=== PATIENT | female | born 1980 | race Caucasian/White ===

== ENCOUNTER 2020-02-06 15:47 | Emergency (ER) | payer MEDICAID, SELFPAY ==
[2020-02-06] VITALS (7 sets, daily range): BP systolic 124–142; BP diastolic 80–92; PULSE 81–88; RESP 16; TEMP 37–37.3; O2SAT 96–100
--- NOTE | 2020-02-06 16:00 | DI.CT_ITS ---
EXAM: CT HEAD CERVICAL SPINE WO CLINICAL HISTORY: Skiing, fell, head injury, cracked helmet, LOC. TECHNIQUE: Imaging Protocol: Axial computed tomography images with coronal and sagittal reformatted images were created and reviewed COMPARISON: No exams were available for comparison FINDINGS: CT head: Ventricles and Extra axial spaces: Normal in size and morphology for the patient's age. Hemorrhage: None. Cerebral parenchyma: Normal. Midline shift: None. Brainstem/Cerebellum: Normal. Calvarium: Normal. Visualized Paranasal sinuses/Mastoids: Clear. CT cervical spine: The odontoid is intact. The lateral masses are well aligned. There is no acute fracture or subluxat ion. Mild degenerative changes are seen in the cervical spine. The prevertebral soft tissues are un remarkable. IMPRESSION: 1. No acute intracranial process. 2. No acute fracture or subluxation in the cervical spine. RADIATION DOSE DELIVERED: DATA REPOSITORY: All CT scans at this facility are submitted to the National Radiology Data Registry (NRDR) Dose Index Registry (DIR) with the [employer] (ACR). RADIATION OPTIMIZATION: All CT scans at this facility use at least one of these dose optimization te chniques: automated exposure control; mA and/or kV adjustment per patient size (includes targeted exa ms where dose is matched to clinical indication); or iterative reconstruction.
[2020-02-06] MEDS: MORPHine 10 MG/ML VIAL 2 MG IVP (16:23)
[2020-02-06 16:58] LABS: Abs Immature Grans 0.01 k/cumm (0.0-0.09); Absolute Basophil Count 0.03 k/cumm (0.0-0.2); Absolute Eosinophil Count 0.03 k/cumm (0.0-0.7); Absolute Lymphocyte Count 2.32 k/cumm (1.2-3.4); Absolute Monocyte Count 0.38 k/cumm (0.11-0.7); Absolute Neutrophil Count 6.55 k/cumm (1.2-6.7); Basophils % 0.3; Eosinophils % 0.3; HCT 38.6 % (36.0-46.0); HGB 12.8 g/dL (12.0-15.5); Immature Grans % 0.1 %; Lymphocytes % 24.9; Mean Corp. HGB Concentration 33.2 g/dL (32.0-36.0); Mean Corpuscular Hemoglobin 31.6 pg (27.0-33.0); Mean Corpuscular Volume 95.3 fL (80-95); Mean Platelet Volume 10.7 fL (8.0-11.0); Monocytes % 4.1; Neutrophils % 70.3; Platelet Count 306 x1000/uL (130-400); RBC 4.05 m/cumm (4.00-5.20); RBC Distribution Width 11.9 % (11.7-14.6); White Blood Cell Count 9.32 k/cumm (4.4-10.8)
[2020-02-06 17:14] LABS: ALT 19 U/L (14-59); AST 27 U/L (15-37); Albumin 3.9 g/dL (3.4-5.0); Alkaline Phosphatase 48 U/L (46-116); Anion Gap 10.5 mmol/L (3-11); BUN 9 mg/dL (7-18); Bilirubin, Total 0.3 mg/dL (0.2-1.0); CO2 25.5 mmol/L (21.0-32.0); CREATININE 0.53 mg/dL (0.55-1.02); Calcium 8.6 mg/dL (8.5-10.1); Chloride 107 mmol/L (98-107); Glucose 89 mg/dL (74-106); Potassium 3.9 mmol/L (3.5-5.1); Sodium 143 mmol/L (136-145); Total Protein 7.3 g/dL (6.4-8.2)
[2020-02-06] MEDS: Ondansetron 4 MG/2 ML VIAL IVP (17:42)
--- NOTE | 2020-02-06 18:32 | DI.VRAD_ITS ---
PROCEDURE INFORMATION: Exam: CT Head Without Contrast Exam date and time: 02/06/2020 4:11 PM Age: 39 years old Clinical indication: Other: Skiing, fell, head injury, cracked helmet, loc TECHNIQUE: Imaging protocol: Computed tomography of the head without contrast. Radiation optimization: All CT scans at this facility use at least one of these dose optimization techniques: automated exposure control; mA and/or kV adjustment per patient size (includes targeted exams where dose is matched to clinical indication); or iterative reconstruction. COMPARISON: No relevant prior studies available. FINDINGS: No evidence of hemorrhage. No mass effect. No acute intracranial abnormality. No evidence of acute fracture. IMPRESSION: No evidence of acute intracranial process. PROCEDURE INFORMATION: Exam: CT Cervical Spine Without Contrast Exam date and time: 02/06/2020 4:11 PM Age: 39 years old Clinical indication: Other: Skiing, fell, head injury, cracked helmet, loc TECHNIQUE: Imaging protocol: Computed tomography images of the cervical spine without contrast. Radiation optimization: All CT scans at this facility use at least one of these dose optimization techniques: automated exposure control; mA and/or kV adjustment per patient size (includes targeted exams where dose is matched to clinical indication); or iterative reconstruction. COMPARISON: No relevant prior studies available. FINDINGS: Degenerative disc disease at C5-C6. Anatomic alignment. No acute fracture. Paraspinous soft tissues unremarkable. IMPRESSION: No evidence of acute bony abnormality. Dictated and Authenticated by: Ivan Estrada MD. Ordering:GIANNI Pérez MD
[2020-02-06] MEDS: Ketorolac 30 MG/ML VIAL IVP (18:45)
--- NOTE | 2020-02-06 19:25 | ED.GENADUL_ITS ---
Discharge Plan Disposition Patient Disposition: HOME Condition: Stable Discharge Details Chief Complaint: Trauma Clinical Impression: Closed head injury with concussion Primary Care Provider: Karin,Local ED Provider: Beto Knutson Home Meds and New Rx's Prescriptions: Continued PNV cmb#95-ferrous fumarate-FA [] 1 EACH tablet 1 ea PO RF: 0 fish,bora,flax oils-om3,6,9no1 [[place] 3-6-9 Complex] 400 MG capsule 400 mg PO DAILY MDD 400 mg Qty: 100 RF: 0 acetaminophen [Tylenol] 325 MG tablet 650 mg PO Q4H PRN PRNRF: 0 Discharge Instructions Instructions: Concussion (ED), Head Injury (ED) Additional Instructions: CT imaging and blood work do not reveal any emergent process. As we discussed [id number] Tylenol and/or Motrin as directed for discomfort. Gentle stretching as tolerated. Cool and/or warm compresses every 2 hours for 20 minutes. Please watch for new or worsening symptoms and return immediately to the ER. Otherwise I recommend contacting our neurology team for outpatient reevaluation, her name and number has been provided Referrals: Ellen Spangler MD [ [facility] STAFF PHYSICIAN] - Medical Decision Making 39-year-old female presented to the ER in a hard c-collar after striking a tree while skiing, falling backwards, sustaining a brief LOC and cracking her helmet. IV established, routine laboratory values obtained, will obtain a CT of the head without contrast to rule out intracranial process or skull fracture, will obtain CT C-spine given mechanism although she has no reproducible discomfort. Considering she has had injury substantial enough to crack her helmet and a positive LOC, this can be considered a distracting injury. There is no trauma elsewhere on her body, will hold off on any additional imaging at this time Patient given 2 mg IV morphine for her headache, no resolution of her symptoms Given additional 2 mg of IV morphine and now 4 mg of IV Zofran as she reports mild nausea Laboratory values are unremarkable. CT imaging of head and C-spine without traumatic etiology per radiology. C-collar removed and given 30 IV Toradol Patient remains neurologically intact under my care. She reports feeling improvement after the collar is removed and is now ambulatory throughout the ER without difficulty. We discussed in length given her injury, LOC, nausea, headache, likely has a concussion and will provide neurology referral. Patient will take [id number] Tylenol and/or Motrin for her discomfort. Patient and family have no additional questions or concerns and are comfortable with this plan. Imaging Data Radiologic Study: Imaging: CT Scan Radiologist's impression: CT of head and C-spine read by virtual radiology as no evidence of acute intracranial process, no evidence of acute bony abnormality of the C-spine. Lab Data Lab results reviewed: Yes I reviewed the patient's lab results. Lab results narrative: Laboratory Tests Range/Units 02/06/20 02/06/20 02/06/20 16:09 16:30 16:30 WBC (4.4-10.8) k/cumm 9.32 RBC (4.00-5.20) m/cumm 4.05 Hgb (12.0-15.5) g/dL 12.8 Hct (36.0-46.0) % 38.6 MCV (80-95) fL 95.3 H MCH (27.0-33.0) pg 31.6 MCHC (32.0-36.0) g/dL 33.2 RDW (11.7-14.6) % 11.9 Plt Count (130-400) x1000/uL 306 MPV (8.0-11.0) fL 10.7 Immature Gran % % 0.1 Neutrophils % 70.3 Lymphocytes % 24.9 Monocytes % 4.1 Eosinophils % 0.3 Basophils % 0.3 Absolute Neutrophils (1.2-6.7) k/cumm 6.55 Absolute Lymphocytes (1.2-3.4) k/cumm 2.32 Absolute Monocytes (0.11-0.7) k/cumm 0.38 Absolute Eosinophils (0.0-0.7) k/cumm 0.03 Absolute Basophils (0.0-0.2) k/cumm 0.03 Sodium (136-145) mmol/L 143 Potassium (3.5-5.1) mmol/L 3.9 Chloride (98-107) mmol/L 107 Carbon Dioxide (21.0-32.0) mmol/L 25.5 Anion Gap (3-11) mmol/L 10.5 BUN (7-18) mg/dL 9 Creatinine (0.55-1.02) mg/dL 0.53 L Estimated GFR/1.73 m2 (mL/min/1.73m2) >= 60.00 Glucose (74-106) mg/dL 89 Calcium (8.5-10.1) mg/dL 8.6 Magnesium Cancelled Total Bilirubin (0.2-1.0) mg/dL 0.3 AST (15-37) U/L 27 ALT (14-59) U/L 19 Alkaline Phosphatase (46-116) U/L 48 Troponin I Cancelled Total Protein (6.4-8.2) g/dL 7.3 Albumin (3.4-5.0) g/dL 3.9 Range/Units 02/06/20 19:09 WBC (4.4-10.8) k/cumm RBC (4.00-5.20) m/cumm Hgb (12.0-15.5) g/dL Hct (36.0-46.0) % MCV (80-95) fL MCH (27.0-33.0) pg MCHC (32.0-36.0) g/dL RDW (11.7-14.6) % Plt Count (130-400) x1000/uL MPV (8.0-11.0) fL Immature Gran % % Neutrophils % Lymphocytes % Monocytes % Eosinophils % Basophils % Absolute Neutrophils (1.2-6.7) k/cumm Absolute Lymphocytes (1.2-3.4) k/cumm Absolute Monocytes (0.11-0.7) k/cumm Absolute Eosinophils (0.0-0.7) k/cumm Absolute Basophils (0.0-0.2) k/cumm Sodium (136-145) mmol/L Potassium (3.5-5.1) mmol/L Chloride (98-107) mmol/L Carbon Dioxide (21.0-32.0) mmol/L Anion Gap (3-11) mmol/L BUN (7-18) mg/dL Creatinine (0.55-1.02) mg/dL Estimated GFR/1.73 m2 (mL/min/1.73m2) Glucose (74-106) mg/dL Calcium (8.5-10.1) mg/dL Magnesium Total Bilirubin (0.2-1.0) mg/dL AST (15-37) U/L ALT (14-59) U/L Alkaline Phosphatase (46-116) U/L Troponin I Cancelled Total Protein (6.4-8.2) g/dL Albumin (3.4-5.0) g/dL HPI General Date/Time Provider Initiated Documentation: 02/06/20 16:02 . Limitations to Documentation: no limitations . Information obtained by: patient and family . HPI Narrative: This is a 39-year-old female who reports [place] the [place], unknown exact speed, but reports that she was not going fast. She swerved to miss someone which caused her to ski into a tree, she did not sustain injury from striking the tree, but subsequently fell backwards striking her head, cracking her helmet. She reports a brief loss of consciousness, now a moderate to severe global headache, mild nausea. She denies visual changes, neck pain, c hest pain, abdominal pain, vomiting, numbness, tingling, weakness, incontinence.. Patient denies any significant past medical history. Related Data Home Medications Medication Instructions Recorded Confirmed PNV cmb#95-ferrous fumarate-FA 1 ea PO 04/16/17 [] fish,bora,flax oils-om3,6,9no1 400 mg PO DAILY #100 tab MDD 400 mg 10/16/17 [[place] 3-6-9 Complex] acetaminophen [Tylenol] 650 mg PO Q4H PRN PRN tab 11/02/17 Previous Rx's Medication Instructions Recorded fish,bora,flax oils-om3,6,9no1 400 mg PO DAILY #100 tab MDD 400 mg 10/16/17 [[place] 3-6-9 Complex] acetaminophen [Tylenol] 650 mg PO Q4H PRN PRN tab 11/02/17 Allergies Allergy/AdvReac Type Severity Reaction Status Date / Time amoxicillin Allergy Unknown Skin Rash Unverified 02/06/20 16:04 General Stated Complaint: Trauma ANDREW: 2 Review of Systems Constitutional Constitutional: Denies fatigue, Reports headache(s) and Denies weakness Eyes Eyes: Denies change in vision ENT Ears, Nose, Mouth, and Throat: Reports headache(s) Cardiovascular Cardiovascular: Denies chest pain and Denies dyspnea Respiratory Respiratory: Denies dyspnea Gastrointestinal Gastrointestinal: Denies abdominal pain, Reports nausea and Denies vomiting Musculoskeletal Musculoskeletal: Denies back pain, Denies numbness and Denies tingling Integumentary/Breasts Skin/Breast: Denies rash Neurologic Neurologic: Reports headache(s), Denies numbness, Denies tingling and Denies weakness Endocrine Endocrine: Denies fatigue PFSH Family History Mother Diabetes Heart disease Father Epilepsy Afib Sister Epilepsy Social History Smoking/Tobacco Use Status: Never Alcohol Intake: current Do you feel safe at home: Yes Exam Const General: cooperative, healthy appearing, comfortable and no acute distress Orientation: alert, awake and oriented x3 HENMT Head: normal to inspection, no palpable skull fracture, normocephalic and atraumatic Ears: external ears normal, TM's normal bilaterally and EAC's normal General nose exam: external nose normal Face and sinus: normal facial exam Mouth: oral mucosae normal and moist mucous membranes Throat: posterior oropharynx normal Eyes General: appearance normal, both eyes and all related structures Visual Naik: normal visual naik by confrontation Alignment and Position: alignment normal Periorbital: periorbital findings normal Eyelids: eyelids normal Conjunctivae: conjunctivae normal Sclera: sclerae normal Cornea: corneas normal Pupils: PERRL EOM: EOM intact bilaterally Direct ophthalmoscopy: normal light reflex Neck Neck: normal visual inspection, trachea midline, supple and other (The patient in hard collar C-spine precautions. Without tenderness or spasm) Chest Chest: normal inspection of the chest and normal palpation of entire chest wall Resp Effort & Inspection: normal respiratory effort and able to speak in complete sentences Auscultation: clear to auscultation bilaterally Cardio Rate: regular rate Rhythm: regular rhythm GI Inspection: normal to inspection Palpation: soft, not firm, no guarding, not rigid and nontender Auscultation: normal bowel sounds Back/Spine/Pelvis Back: no CVA tenderness and No back tenderness Cervical Spine: collar present and No cervical spinal tenderness Thoracic/Lumbar Spine: thoracic and lumbar spine normal to inspection and No paraspinal tenderness Pelvis: no pain with anterior-posterior compression Skin General skin exam: no rashes or lesions noted Neuro General: alert, awake, oriented x3, moves all extremities and no focal motor deficits Cranial Nerves: CN's II-XI intact bilaterally Cognition: normal cognition Speech: speech normal Motor: muscle tone normal throughout, strength 5/5 throughout and no pronator drift noted Sensory Exam: no sensory deficits noted Coordination: [id number] test normal Extrem General: normal to inspection, full ROM and normal capillary refill Psych Appearance: grossly normal Mental Status: mental status grossly normal Course Vital Signs Vital signs: Vital Signs Temperature 37.3 C 02/06/20 15:49 Pulse 88 02/06/20 15:49 Respiratory Rate 16 02/06/20 15:49 Blood Pressure 124/92 H 02/06/20 15:49 Pulse Oximetry 100 02/06/20 15:49 Temperature 37.0 C 02/06/20 18:57 Temperature Source Temporal Artery Scan 02/06/20 18:57 Pulse 81 02/06/20 17:31 Respiratory Rate 16 02/06/20 17:20 Respiratory Effort 02/06/20 15:58 Blood Pressure 142/81 H 02/06/20 17:31 Blood Pressure Mean 89 02/06/20 17:31 Blood Pressure Position Sitting 02/06/20 15:49 Pulse Oximetry 97 02/06/20 17:40 Oxygen Delivery Method Room Air 02/06/20 17:20 Oxygen Flow Rate 0 02/06/20 17:20 Pain Level 8 02/06/20 17:41 Comment 02/06/20 18:57 Lab/Test Results Lab/Test Results: Laboratory Tests Range/Units 02/06/20 02/06/20 02/06/20 16:09 16:30 16:30 WBC (4.4-10.8) k/cumm 9.32 RBC (4.00-5.20) m/cumm 4.05 Hgb (12.0-15.5) g/dL 12.8 Hct (36.0-46.0) % 38.6 MCV (80-95) fL 95.3 H MCH (27.0-33.0) pg 31.6 MCHC (32.0-36.0) g/dL 33.2 RDW (11.7-14.6) % 11.9 Plt Count (130-400) x1000/uL 306 MPV (8.0-11.0) fL 10.7 Immature Gran % % 0.1 Neutrophils % 70.3 Lymphocytes % 24.9 Monocytes % 4.1 Eosinophils % 0.3 Basophils % 0.3 Absolute Neutrophils (1.2-6.7) k/cumm 6.55 Absolute Lymphocytes (1.2-3.4) k/cumm 2.32 Absolute Monocytes (0.11-0.7) k/cumm 0.38 Absolute Eosinophils (0.0-0.7) k/cumm 0.03 Absolute Basophils (0.0-0.2) k/cumm 0.03 Sodium (136-145) mmol/L 143 Potassium (3.5-5.1) mmol/L 3.9 Chloride (98-107) mmol/L 107 Carbon Dioxide (21.0-32.0) mmol/L 25.5 Anion Gap (3-11) mmol/L 10.5 BUN (7-18) mg/dL 9 Creatinine (0.55-1.02) mg/dL 0.53 L Estimated GFR/1.73 m2 (mL/min/1.73m2) >= 60.00 Glucose (74-106) mg/dL 89 Calcium (8.5-10.1) mg/dL 8.6 Magnesium Cancelled Total Bilirubin (0.2-1.0) mg/dL 0.3 AST (15-37) U/L 27 ALT (14-59) U/L 19 Alkaline Phosphatase (46-116) U/L 48 Troponin I Cancelled Total Protein (6.4-8.2) g/dL 7.3 Albumin (3.4-5.0) g/dL 3.9 Range/Units 02/06/20 19:09 WBC (4.4-10.8) k/cumm RBC (4.00-5.20) m/cumm Hgb (12.0-15.5) g/dL Hct (36.0-46.0) % MCV (80-95) fL MCH (27.0-33.0) pg MCHC (32.0-36.0) g/dL RDW (11.7-14.6) % Plt Count (130-400) x1000/uL MPV (8.0-11.0) fL Immature Gran % % Neutrophils % Lymphocytes % Monocytes % Eosinophils % Basophils % Absolute Neutrophils (1.2-6.7) k/cumm Absolute Lymphocytes (1.2-3.4) k/cumm Absolute Monocytes (0.11-0.7) k/cumm Absolute Eosinophils (0.0-0.7) k/cumm Absolute Basophils (0.0-0.2) k/cumm Sodium (136-145) mmol/L Potassium (3.5-5.1) mmol/L Chloride (98-107) mmol/L Carbon Dioxide (21.0-32.0) mmol/L Anion Gap (3-11) mmol/L BUN (7-18) mg/dL Creatinine (0.55-1.02) mg/dL Estimated GFR/1.73 m2 (mL/min/1.73m2) Glucose (74-106) mg/dL Calcium (8.5-10.1) mg/dL Magnesium Total Bilirubin (0.2-1.0) mg/dL AST (15-37) U/L ALT (14-59) U/L Alkaline Phosphatase (46-116) U/L Troponin I Cancelled Total Protein (6.4-8.2) g/dL Albumin (3.4-5.0) g/dL POC- Test(urine) Negative
== END 2020-02-06 19:05 | disposition home or self-care (01) ==
PROVIDERS: Emergency Provider Physician Assistant
DX: S06.9X1A Unspecified intracranial injury with loss of consciousness of 30 minutes or less, initial encounter (principal); W22.09XA Striking against other stationary object, initial encounter; Y93.23 Activity, snow (alpine) (downhill) skiing, snowboarding, sledding, tobogganing and snow tubing
CPT/HCPCS: 80053; 81025; 96374; 96375; 96376; 99285; 70450; 72125; 83735; 84484; 85025; 99284; J1885; J2270; J2405

== ENCOUNTER 2021-03-06 02:39 | Outpatient (CLI) | payer MEDICAID, SELFPAY ==
[2021-03-07 18:32] LABS: COVID-19 RT-PCR UVMMC Result Negative (Negative)
== END 2021-03-06 02:40 | disposition home or self-care (01) ==
LOC: LBO 02:39
PROVIDERS: Visit Provider Pediatrics
DX: Z20.822 Contact with and (suspected) exposure to COVID-19 (principal)
CPT/HCPCS: U0003

== ENCOUNTER 2021-03-08 09:51 | Outpatient (CLI) | payer MEDICAID, SELFPAY ==
[2021-03-09 16:16] LABS: COVID-19 RT-PCR UVMMC Result Negative (Negative)
== END 2021-03-08 09:52 | disposition home or self-care (01) ==
PROVIDERS: Visit Provider Pediatrics
DX: Z20.822 Contact with and (suspected) exposure to COVID-19 (principal)
CPT/HCPCS: U0003

== ENCOUNTER 2021-08-16 12:14 | Outpatient (REF) | payer MEDICAID, SELFPAY ==
--- NOTE | 2021-08-16 10:15 | PAPFT_PTH ---
PATIENT: Mónica Falk LOC: [facility] U#:[id number] AGE/SX: 40/F ROOM: RE08/16/[address]: CAROLINE Barry : 1980 BED: DIS: 08/16/2021 SPEC #: [id number] RECD: 08/16/21 12:46 STATUS: ESTEFANI REQ #: [id number] [place]AS[place]: 08/16/21 10:[address]: Munira Gerardo DEPT: [facility] Cytology RECD BY: Krysta Mims ENTERED: 08/16/21 12:47 SP TYPE: PAPFT OT DR: Karin Local Tissues: 1 - CX/ENDOCX FOR PAP SMEARS Procedures: PAP THIN PREP/UVM Screening HPV DNA PROBE Comments: [id number]
== END 2021-08-16 12:15 | disposition home or self-care (01) ==
LOC: LBN 12:14
PROVIDERS: Referring Provider Nurse Practitioner Family; Visit Provider Nurse Practitioner Family
DX: Z12.4 Encounter for screening for malignant neoplasm of cervix (principal); Z11.51 Encounter for screening for human papillomavirus (HPV)
CPT/HCPCS: 88142; 87624

== ENCOUNTER 2021-09-10 00:39 | Outpatient (CLI) | payer MEDICAID, SELFPAY ==
--- NOTE | 2021-09-10 07:30 | DI.US_ITS ---
Exam(s) US PELVIS TRANSVAGINAL EXAM: US PELVIS TRANSVAGINAL CLINICAL HISTORY: heavy long periods,MENORRHAGIA,N92.0 TECHNIQUE: Ultrasound performed using standard protocol. COMPARISON: No exams were available for comparison FINDINGS: Pelvic ultrasound was performed transabdominally and transvaginally. Uterus measures 9.5 x 4.8 x 5.9 cm and is heterogeneous in appearance without focal intrauterine mass. Endometrial stripe is about 6 millimeters in thickness and appears homogeneous. Left ovary has an unremarkable follicular appearance and measures 26 x 10 x 30 millimeters. There is an apparent mass adjacent to and perhaps arising from the right ovary, right ovary per se me asures 36 x 17 x 29 millimeters and the exophytic mass measures 19 x 18 x 20 millimeters and contains vascular flow on Doppler evaluation, mass is mildly heterogeneous and predominantly isoechoic to the adjacent ovary. There is a small quantity of free fluid in the right adnexal region. Limited scanning of the kidneys is unremarkable. IMPRESSION: Right ovarian or paraovarian mass which has an indeterminate appearance and contains internal vascula rity. Possibility of neoplastic disease not excluded. Pelvic MRI may be considered for correlation. DATA REPOSITORY:
--- NOTE | 2021-09-10 12:55 | DI.MAMMO_ITS ---
Exam(s) MAMMO SCREENING EXAM: MAMMO SCREENING CLINICAL HISTORY: screening,Z12.39 TECHNIQUE: Mammograms were interpreted according to the usual protocol including computer analysis w [employer] CAD system, tomosynthesis and C-view imaging. COMPARISON: FINDINGS: The breasts are heterogeneously dense. No dominant mass or clumped microcalcification is identified in either breast. This examination is a baseline examination. IMPRESSION: No specific evidence of malignancy at this time. Routine screening examinations are suggested at yea rly intervals in this age group according to the ACR guidelines. BI-RADS Category 1 - Negative Breast Density - Category C - Heterogeneously dense
== END 2021-09-10 00:59 ==
PROVIDERS: Visit Provider Nurse Practitioner Family
DX: Z12.31 Encounter for screening mammogram for malignant neoplasm of breast (principal); N92.0 Excessive and frequent menstruation with regular cycle; R92.8 Other abnormal and inconclusive findings on diagnostic imaging of breast; R93.5 Abnormal findings on diagnostic imaging of other abdominal regions, including retroperitoneum
CPT/HCPCS: 77063; 77067; 76830; 76856

== ENCOUNTER 2021-10-30 01:43 | Outpatient (CLI) | payer MEDICAID, SELFPAY ==
--- NOTE | 2021-10-30 07:30 | DI.MRI_ITS ---
Exam(s) MR PELVIS WO/W EXAM: MR PELVIS WO/W CLINICAL HISTORY: MASS RT OVARY, N83.8,F/U ABNL US TECHNIQUE: Multiplanar multisequence MRI of Pelvis was performed. CONTRAST MATERIAL: IV Contrast: 14 mL of Dotarem contrast administered. COMPARISON: US US PELVIS TRANSVAGINAL from 09/10/2021 FINDINGS: Reproductive organs: The uterus appears grossly unremarkable. The left ovary is unremarkable. In th e right adnexa there 2 peripherally enhancing cysts adjacent cysts present. The larger measures 2.3 x 1.7 cm. The smaller measures 1.6 x 1.6 cm. These appear to be ovarian in origin. Inferior to the ovary, lies the solid lesion seen on ultrasound. It measures 1.8 x 1.8 cm. It shows hypointense si gnal on both T1 and T2 weighted images. It homogeneously enhances following contrast administration. It abuts the inferior aspect of the right ovary. It lies close to the right aspect of the uterus. Bowel: The visualized bowel is unremarkable. Urinary bladder: Unremarkable. Bones: Unremarkable. Pelvis: There is a small amount of free fluid in the pelvis. IMPRESSION: 1. 1.8 x 1.8 cm enhancing lesion in the right adnexa. It abuts both the uterus and right ovary. Dif ferential considerations include pedunculated fibroid, ovarian mass (both benign and malignant), or a denopathy among other etiologies. 2. Right ovarian cysts. DATA REPOSITORY:
[2021-10-30] MEDS: Normal Saline Flush 10 ML SYR IVP (09:40)
[2021-10-30] MEDS: Gadoterate meglumine 20 ML VIAL 14 ML IVP (09:41)
== END 2021-10-30 02:03 ==
PROVIDERS: Visit Provider Obstetrics & Gynecology Gynecology
DX: N83.8 Other noninflammatory disorders of ovary, fallopian tube and broad ligament (principal); R93.5 Abnormal findings on diagnostic imaging of other abdominal regions, including retroperitoneum
CPT/HCPCS: 72197

== ENCOUNTER 2021-11-12 04:03 | Outpatient (CLI) | payer MEDICAID, SELFPAY ==
[2021-11-12 10:50] LABS: HCT 37.9 % (36.0-46.0); HGB 12.3 g/dL (11.2-15.7); MCH 31.8 pg (27.0-33.0); MCHC 32.5 % (32.0-36.0); MCV 97.9 fL (80-95); MPV 10.1 fL (8.0-11.0); Platelet Count 291 10^3/uL (130-400); RBC 3.87 10^6/uL (3.93-5.22); RDW 11.7 % (11.7-14.6); RDW-SD 42.2 fL; WBC 6.89 10^3/uL (4.4-10.8)
[2021-11-12 12:11] LABS: Anion Gap 5.1 mmol/L (3-11); BUN 14 mg/dL (7-18); CO2 31.9 mmol/L (21.0-32.0); CREATININE 0.7 mg/dL (0.55-1.02); Chloride 103 mmol/L (98-107); Glucose 113 mg/dL (74-106); Sodium 140 mmol/L (136-145)
[2021-11-12 12:15] LABS: HCG Qual (Serum) Negative
[2021-11-12 16:05] LABS: Source Nasal/Nares
[2021-11-12 21:46] LABS: COVID-19 PCR Negative (Negative)
== END 2021-11-12 04:04 | disposition home or self-care (01) ==
LOC: LBO 04:03
PROVIDERS: Visit Provider Obstetrics & Gynecology Gynecology
DX: D25.9 Leiomyoma of uterus, unspecified (principal); Z30.2 Encounter for sterilization; Z20.822 Contact with and (suspected) exposure to COVID-19; Z01.818 Encounter for other preprocedural examination; Z01.812 Encounter for preprocedural laboratory examination
CPT/HCPCS: 36415; 80048; 85027; 87635; 84703

== ENCOUNTER 2021-11-14 10:02 | Day surgery (SDC) | payer MEDICAID, SELFPAY ==
[2021-11-14] VITALS (8 sets, daily range): BP systolic 95–122; BP diastolic 42–80; PULSE 53–77; RESP 14–19; TEMP 36.1–37.1; O2SAT 95–99; BMI 27.7
--- NOTE | 2021-11-14 10:37 | W.ANESPRE ---
General Info Date of Service Date Performed: 11/14/21 Height: 5 ft 3 in Weight: 70.987 kg Body Mass Index (BMI): 27.7 Surgical Procedure: Operation Date: 11/14/21 10:55 Proposed Procedures Side Surgeon p Salpingectomy Laparoscopic w/ right ovarian cystectomy Bilateral Marcy Howard MD Meds Allergies and Home Medications Allergies Allergy/AdvReac Type Severity Reaction Status Date / Time amoxicillin Allergy Unknown Skin Rash Verified 11/14/21 10:12 Home Medication Medication Instructions Recorded acetaminophen [Tylenol] 650 mg PO Q4H PRN PRN tab 11/02/17 Current Visit Medications: Current Medications Generic Name Dose Route Start Last Admin Trade Name Freq PRN Reason Stop Dose Admin Ringer's Solution 1,000 mls @ 125 mls/hr 11/14/21 06:00 IV 12/13/21 23:59 INFUSION PHANI IV Miscellaneous Supplies 1 each 11/14/21 06:00 Iv Access IV 12/13/21 23:59 DIRECTED PHANI Sodium Chloride 0 ml 11/14/21 06:00 Normal Saline Flush 10 Ml Syr IV 12/13/21 23:59 PRN PRN Sodium Chloride 0 ml 11/14/21 06:00 Normal Saline 10 Ml Vial IJ 12/13/21 23:59 DIRECTED PRN Sterile Water 0 ml 11/14/21 06:00 Water,Injection,Sterile 10 Ml Vial IJ 12/13/21 23:59 DIRECTED PRN PFSH Active Problems Active Problems: Problem Status Onset Code Preop examination Z01.818 Mass of right ovary N83.8 Request for sterilization Z30.2 Adjustment disorder with anxiety F43.22 Other specified counseling Z71.89 Medical History Medical History Post-concussion headache Medical History Comments:: HCG was negative Tobacco Smoking/Tobacco Use Status: Never Alcohol Alcohol Intake: current Alcohol intake frequency: a few times a week Alcohol type: beer and wine Substance Use Substance use: Occasionally Substance use type: marijuana Details: few times per week Vital Signs and Lab Results Vital Signs Most Recent Vital Signs in EMR: Most Recent Vital Signs Temp Pulse Resp BP Pulse Ox 37.1 C 77 16 122/80 99 11/14/21 10:05 11/14/21 10:05 11/14/21 10:05 11/14/21 10:05 11/14/21 10:05 Lab Results Blood Type / Crossmatch: No Data to Display Complete Blood Count: White Blood Count 6.89 10^3/uL (4.4-10.8) 11/12/21 10:46 11/12/21 Red Blood Count 3.87 10^6/uL (3.93-5.22) L 11/12/21 10:46 11/12/21 Hemoglobin 12.3 g/dL (11.2-15.7) 11/12/21 10:46 11/12/21 Hematocrit 37.9 % (36.0-46.0) 11/12/21 10:46 11/12/21 Platelet Count 291 10^3/uL (130-400) 11/12/21 10:46 11/12/21 Complete Metabolic Panel: Sodium Level 140 mmol/L (136-145) 11/12/21 10:46 11/12/21 Potassium Level 4.0 mmol/L (3.5-5.1) 11/12/21 10:46 11/12/21 Chloride Level 103 mmol/L (98-107) 11/12/21 10:46 11/12/21 Carbon Dioxide Level 31.9 mmol/L (21.0-32.0) 11/12/21 10:46 11/12/21 Blood Urea Nitrogen 14 mg/dL (7-18) 11/12/21 10:46 11/12/21 Creatinine 0.7 mg/dL (0.55-1.02) 11/12/21 10:46 11/12/21 Estimated GFR/1.73 m2 >= 60.00 (mL/min/1.73m2) 11/12/21 10:46 11/12/21 Calcium Level 9.0 mg/dL (8.5-10.1) 11/12/21 10:46 11/12/21 Glucose Level 113 mg/dL (74-106) H 11/12/21 10:46 11/12/21 Liver Function Panel: No Data to Display Coagulation Panel: No Data to Display Cardiac Panel: No Data to Display Arterial Blood Gas: No Data to Display Venous Blood Gas: No Data to Display Pancreas Panel: No Data to Display Thyroid Panel: No Data to Display Infectious Disease: Coronavirus (COVID-19)(PCR) Negative (Negative) 11/12/21 11:15 11/12/21 Coronavirus 2019 Source Nasal/Nares 11/12/21 11:15 11/12/21 Blood Cultures: No Data to Display Toxicology Panel: No Data to Display Panel: Serum HCG, Qualitative Negative 11/12/21 10:46 11/12/21 Anesthesia Assessment and Plan Anesthesia History Personal History: No History of Anesthesia Complications Family History: No Family History of Anesthesia Complications Exercise Tolerance Exercise Tolerance: Metabolic Equivalents>4 Cardiac & Pulmonary Exam Cardiac Exam: Normal S1/S2 Heart Sounds Pulmonary Exam: Clear Bilateral Breath Sounds Implantable Cardiac Device Does patient have a Pacemaker or an ICD?: No Airway Exam Known Difficult Airway: No Mallampati Class: 1 Mouth Opening: Normal (> 3cm) Thyromental Distance: Greater than 3 cm Neck Range of Motion: Full ROM Neck Circumference: Normal Teeth Condition: Normal Dentition ASA Classification ASA Score: ASA 2 Emergency Case?: No NPO Status NPO Status: NPO Clears >2 hours, Solids >8 hours Status Status: Negative HCG Anesthesia Plan Resuscitation Status: Full Code Anesthesia Technique: General Anesthesia Airway Planned: Endotracheal Tube Monitors Used: Standard Monitors
[2021-11-14] MEDS: Lactated Ringers 1,000 ML 125 ML IV (10:49)
[2021-11-14] MEDS: Bupivacaine 0.25% Pres-Free 30 ML VIAL (12:22)
--- NOTE | 2021-11-14 12:22 | FALL_PTH ---
PATIENT: Mónica Falk LOC: [facility] U#:[id number] AGE/SX: 41/F ROOM: RE11/14/[address]: Marcy Howard : 1980 BED: DIS: 11/14/2021 SPEC #: [id number] RECD: 11/14/21 18:13 STATUS: ESTEFANI REQ #: [id number] [place]AS[place]: 11/14/21 12:[address]: Marcy Howard DEPT: Surgical Specimen RECD BY: Krysta Mims ENTERED: 11/14/21 18:13 SP TYPE: Fall OTHR DR: No Local Tissues: 1 - FALLOPIAN TUBE (STERILIZATION) 2 - FALLOPIAN TUBE (STERILIZATION) Procedures: GROSS AND MICRO LEVEL 2 Comments: [id number]
--- NOTE | 2021-11-14 13:06 | W.PM.DSUDISC ---
Discharge Plan Disposition Patient Disposition: HOME Condition: Good Discharge Details Attending Provider: Marcy Howard Primary Care Provider: No,Local Home Meds and New Rx's Prescriptions: No Action acetaminophen [Tylenol] 325 MG tablet 650 mg PO Q4H PRN PRNRF: 0 Discharge Instructions Additional Instructions: You may remove your bandages from your incision in 24 hours. There is purple skin glue over your incisions to allow you to take a shower after removing the bandage. You may experience some bruising around your incisions. Lastly you may experience a slight change in your periods for the first month or two. Right with Dr. Howadr in 2 weeks. Stand Alone Forms: DSU Post Gynecology Surgery Activity:: Activity as Tolerated Remove Dressings/Wound Care:: 24 hours Shower/Bathe:: 24 hours Diet:: As Tolerated Discharge Orders Discharge Orders: Discharge Order (Routine); Ordered 11/14/21 Ordered By: Marcy Howard DS: Diagnosis Discharge Diagnosis (1) Request for sterilization: (2) History of sterilization procedure: Status: Acute
--- NOTE | 2021-11-14 13:22 | W.PM.OP ---
Date of service: 11/14/21 Time of Service: 13:23 Operative Note Operative Note DATE OF PROCEDURE: 11/14/21 PRE-OP DIAGNOSIS: Multiparity desiring permanent sterilization. Right adnexal mass POST-OP DIAGNOSIS: other Multiparity desiring permanent sterilization. Fibroid uterus with pedunculated fundal fibroid PROCEDURE: Laparoscopic bilateral salpingectomy SURGEON: Marcy Howard RAILWAY SIGNALLING ENGINEER: Jessica Hines ANESTHESIA TYPE: General LMA/ETT Refer to Anesthesia Record ESTIMATED BLOOD LOSS: 5 PATHOLOGY: other (Fallopian tubes to pathology) COMPLICATIONS: None Patient was transported to: PACU Patient's condition: stable Indications: 40yo female who requested permanent sterilization. Imaging studies of the pelvis showed a exophytic mass possibly right adnexal origin, possible pedunculated uterine fibroid. Findings: Normal-appearing right and left adnexa. Pedunculated fundal fibroid approximately 2 x 3 cm. 2 cm smooth cystic structure in the left broad ligament in close proximity to the round ligament and the left pelvic sidewall. Procedure Description: Patient was taken to the operating room where she was placed in the dorsal supine position and endotracheal anesthesia was administered without difficulty. SCDs were in place. A surgical timeout was performed. She was prepped and draped in the usual sterile fashion. The umbilical fold was infiltrated with quarter percent Marcaine without epinephrine and 12 mm vertical skin incision was made in the umbilicus. Two penetrating towel clips were used to grasp the distal portion of the incision and tent up the skin. Through this incision a varies needle connected to carbon dioxide gas was inserted into the abdomen and intra-abdominal placement confirmed by drop in the intra-abdominal pressure. Once a pneumoperitoneum was established a 12 mm Visiport trocar was introduced into the abdomen under direct visualization. The patient was then placed in Trendelenburg and 2 sites on the abdomen approximately 6 cm diagonal to the right of and left of the umbilical incision were transilluminated, the skin infiltrated with 0.25% Marcaine. The skin was incised with a scalpel and under direct visualization two 5 mm ports were placed in the right and left lower quadrants respectively. The abdomen was inspected with the above-noted findings. The left fimbria was located followed out to its fimbriated end and a LigaSure electrocautery device was used to clamp cauterize and transect the fimbria from the left mesosalpinx to the level of the left uterine cornua. LigaSure device was used to clamp cauterize and transect the left distal portion of the fallopian tube from the left uterine cornua. The left fallopian tube was then delivered through the 10 mm umbilical port and passed off of the operative field. A similar technique was carried out on the right fallopian tube without difficulty. Both pedicle sites were inspected and noted to be hemostatic. Under direct visualization the two 5 mm ports were removed, the pneumoperitoneum reduced, and the umbilical port removed. The fascia of the umbilical port site was reapproximated with interrupted suture of 0 Vicryl. The skin of all trocar sites was reapproximated with 4-0 Monocryl and covered with dry sterile dressings. The patient was awakened extubated and transported to recovery area in stable condition. All sponge lap needle counts are correct x2
[2021-11-14] MEDS: oxyCODONE 5 mg/Acetaminophen 325 mg TAB PO (14:01)
--- NOTE | 2021-11-14 14:38 | W.ANESPOSTOP ---
Postoperative Evaluation Date, Time and Location Date Performed: 11/14/21 Time Performed: 14:00 Patient Location: Day Surgery Unit Vital Signs Most Recent Imported Vital Signs: Most Recent Vital Signs Temp Pulse Resp BP Pulse Ox 36.9 C 53 L 16 117/69 95 11/14/21 14:06 11/14/21 14:06 11/14/21 14:06 11/14/21 14:06 11/14/21 14:06 Pain Score Most Recent Pain Score: Most Recent Pain Score Pain Level 3 11/14/21 14:06 Assessment Mental Status: Awake (Alert & Oriented to Patient Baseline) Airway and Respiratory Function: Patent airway with normal (patient baseline) respiratory exam Cardiovascular Function: Hemodynamically Stable Hydration Status: Adequately Hydrated Nausea & Vomiting: No Nausea or Vomiting Pain: Pt. Denies Any Pain Peripheral Nerve Block: Patient did not receive a nerve block
== END 2021-11-14 14:51 | disposition home or self-care (01) ==
PROVIDERS: Visit Provider Obstetrics & Gynecology Gynecology
PROC: (CPT 58661; principal; 2021-11-14 10:45)
DX: Z30.2 Encounter for sterilization (principal); D25.9 Leiomyoma of uterus, unspecified
CPT/HCPCS: 58661; 36415; 86850; 86900; 86901; 88302; J1100; J1885; J2250; J2405

== ENCOUNTER 2024-07-22 02:16 | Outpatient (CLI) | payer BC, SELFPAY ==
--- NOTE | 2024-07-22 08:00 | DI.MAMMO_ITS ---
Exam(s) MAMMO SCREENING EXAM: MAMMO SCREENING CLINICAL HISTORY: screening,z12.39 TECHNIQUE: Mammograms were interpreted according to the usual protocol including computer analysis w [email or web address] CAD system, tomosynthesis and C-view imaging. COMPARISON: 2020 FINDINGS: The breasts are composed of heterogeneously dense fibroglandular densities, Breast Density category C . No suspicious masses or suspicious microcalcifications are seen. No skin thickening or abnormal axillary lymph nodes are seen. There has been no significant change from prior exams. IMPRESSION: BI-RADS Category 1, Negative mammogram. Yearly screening mammography is recommended. Breast Density Category C, heterogeneously Dense. The mammogram demonstrates the patient's breast tissue is dense. Dense breast tissue is very common a nd is not abnormal but dense breast tissue can make it harder to find cancer on a mammogram. Also, de nse breast tissue may increase breast cancer risk. This information about the result of the mammogram report was provided to the patient to raise their awareness. Use this report when you speak with the patient about their risks for breast cancer, which includes their family history. At that time, you may recommend additional screening tests (Ultrasound or MRI) as they might be useful based on their r isk. A negative radiographic report should not delay biopsy if a dominant or clinically suspicious mass is present. Up to ten percent of cancers are not identified on mammography. A negative report may reinforce clinical impression. Adenosis and dense breasts may obscure an underlying neoplasm. False positive reports average 6 to 10%.
== END 2024-07-22 02:36 ==
LOC: DI 02:16
PROVIDERS: PCP Nurse Practitioner Family; Visit Provider Nurse Practitioner Family
DX: Z12.31 Encounter for screening mammogram for malignant neoplasm of breast (principal)
CPT/HCPCS: 77063; 77067

== ENCOUNTER 2024-07-22 10:49 | Outpatient (CLI) | payer BC, SELFPAY ==
[2024-07-22 11:03] LABS: HCT 44.8 % (36.0-46.0); HGB 14.9 g/dL (11.2-15.7); MCH 32.2 pg (27.0-33.0); MCHC 33.3 % (32.0-36.0); MCV 97 fL (80-95); MPV 10.4 fL (8.0-11.0); Platelet Count 297 10^3/uL (130-400); RBC 4.63 10^6/uL (3.93-5.22); RDW 11.2 % (11.7-14.6); RDW-SD 39.9 fL; WBC 8.44 10^3/uL (4.4-10.8)
[2024-07-22 11:25] LABS: ALT 21 U/L (14-59); AST 15 U/L (15-37); Albumin 4.1 g/dL (3.4-5.0); Alkaline Phosphatase 64 U/L (46-116); Anion Gap 8.6 mmol/L (3-11); BUN 11 mg/dL (7-18); Bilirubin, Total 0.59 mg/dL (0.2-1.0); CO2 27.4 mmol/L (21.0-32.0); CREATININE 0.8 mg/dL (0.55-1.02); Calculated LDL 141 mg/dL (<100); Chloride 101 mmol/L (98-107); Cholesterol 254 mg/dL (<200); Estimated GFR 93.12 (mL/min/1.73m2); Glucose 98 mg/dL (74-106); HDL Cholesterol 91 mg/dL (40-60); Potassium 4.3 mmol/L (3.5-5.1); Sodium 137 mmol/L (136-145); TSH (W/Ref FT4) 1.65 uIU/mL (0.36-3.74); Total Protein 7.7 g/dL (6.4-8.2); Triglyceride 110 mg/dL (<150)
[2024-07-22 21:15] LABS: HIV-1/2 Ag & Ab Screen Negative (Negative)
[2024-07-22 21:53] LABS: Hepatitis C Ab w Rflx HCV PCR Negative (Negative)
[2024-07-22 22:31] LABS: HBs Antibody, Quant >1000.0 mIU/mL (See Note); Hep B Surface Ab Positive (See Note); Hepatitis B Core Antibody Negative (Negative); Hepatitis B Surface Antigen Negative (Negative)
== END 2024-07-22 10:50 | disposition home or self-care (01) ==
LOC: LBO 10:49
PROVIDERS: PCP Nurse Practitioner Family; Visit Provider Nurse Practitioner Family
DX: Z00.00 Encounter for general adult medical examination without abnormal findings (principal); Z11.59 Encounter for screening for other viral diseases; Z11.4 Encounter for screening for human immunodeficiency virus [HIV]
CPT/HCPCS: 36415; 80053; 80061; 85027; 86704; 86706; 86803; 87340; 87389; 83036; 84443

== ENCOUNTER 2024-09-27 08:40 | Day surgery (SDC) | payer BC, SELFPAY ==
--- NOTE | 2024-09-26 15:55 | W.PM.DSUDISC ---
Date of service: 09/27/24 Time of Service: 10:07 Discharge Plan Disposition Patient Disposition: Home Condition: Good Discharge Details Reason For Visit: screening colonoscopy Attending Provider: Chace Bojorquez Primary Care Provider: Shanta Navarro Home Meds and New Rx's Prescriptions: Continued dextroamphetamine-amphetamine [Adderall XR] 20 mg capsule,extended release 24hr 20 mg PO DAILY MDD 20 Qty: 28 0RF dextroamphetamine-amphetamine [Adderall XR] 10 mg capsule,extended release 24hr 20 mg PO DAILY MDD 20mg Qty: 56 0RF Discharge Instructions Instructions: Colon polyps, Diverticulosis Additional Instructions: Mónica, it was a pleasure meeting you today, and I hope you are comfortable during the colonoscopy. Your prep was excellent and I could see everything fine. I did find removed 2 polyps today. Both of these will be sent off for testing, and once I get the report of the nature of the polyps, the office will be in touch with recommendations for the timing of your next colonoscopy. Incidentally, you have a little bit of diverticulosis as well. Diverticula are little weak spots in the wall of the colon. This causes the inside lining to pooch outward through the muscular part of the colon wall. They can get inflamed, and if that occurs, patients usually have quite a bit of pain usually on the left lower part of their abdomen. This is often times accompanied with fevers and a feeling of illness. During these flareups, we refer to it as diverticulitis. Hopefully, ears will never bother you. I did attach a little bit of information here about colon and rectal polyps, as well as diverticulosis. If you have any questions at all, please do not hesitate to ask, otherwise, the office will be in touch once the results of the polyp report are available. 1. If tolerated, consume a soft, low fiber diet for 1-2 days. 2[address] Do not drive, drink alcohol, operate machinery, make critical decisions, or do activities that require coordination or balance for 24 hours. 3. Because air was put into your colon during the procedure, expelling air from your rectum (passing gas or farting) is normal. 4. You may not have a bowel movement for 1-3 days because of the colonoscopy prep. This is normal. 5. Go directly to the emergency room if you notice any of the following: Develop chills (warm to touch), or if you have a thermometer and your temperature is above 101 Difficulty breathing or difficultly swallowing Persistent vomiting Severe abdominal pain, other than gas cramps Severe chest pain Black, tarry stools Any bleeding ? exceeding one tablespoon 6. Call your physician if the site where your intravenous was started becomes red, swollen, painful, and warm to touch. 7. Your physician has reviewed your pre-procedure medications. Please continue to take those medications as previously ordered. You will be given specific information/education regarding any changes to your medications before leaving. Activity:: Activity as Tolerated Diet:: As Tolerated Discharge Orders Discharge Orders: Discharge Order (Routine); Ordered 09/26/24 Ordered By: Chace Bojorquez DS: Diagnosis Discharge Diagnosis (1) Encounter for screening colonoscopy: Status: Acute Asessment and Plan: Follow-up on polypectomy results
--- NOTE | 2024-09-26 15:56 | COLE_ITS ---
Date of service: 09/27/24 Time of Service: 10:08 Colonoscopy Report Date of procedure: 09/27/24 Pre-op diagnosis general: screening colonoscopy Post-op diagnosis procedure note: other (Colon polyps, diverticulosis) Procedure: colonoscopy Surgeon: Chace Bojorquez Anesthesia Type: General:No Airway Estimated blood loss (mL): 5 Pathology: other (0.25 cm polyp at 45 cm, 0.25 cm polyp at 15 cm) Complications: None Disposition: same day Indications: Mónica is a 44 year old woman who needs a screening colonscopy Prep: Miralax/Dulcolax Procedure Start Time: 09:41 Procedure End Time: 10:00 Retraction Time: 8 Findings: Sigmoid diverticulosis; 0.25 cm polyp at 45 cm, 0.25 cm polyp at 15 cm Procedure Description: After the induction of anesthesia, and with the patient in left lateral decubitus position, I began by performing an external anorectal exam.? Perineum and skin were normal, as was the anal verge.? There was no evidence of external hemorrhoids.? Next, I performed a digital rectal exam.? I did not appreciate any abnormal findings.? Next, I advanced a colonoscope into the rectal vault.? I performed retroflexion.? This appeared normal.? Using insufflation, I then advanced the colonoscope beyond the rectal folds and into the sigmoid colon before advancing towards the cecum.? There is some sigmoid diverticulosis.? The scope was noted to be in the cecum by identification of the ileocecal valve and appendiceal orifice.? I then began withdrawing the colonoscope using repeated irrigation as necessary for full evaluation of the colonic mucosa. Around 45 cm from the anus was a 0.25 cm flat polyp. This was retrieved with cold forceps with minimal bleeding. ?Once the scope was withdrawn to the level of the rectum, great care was taken to examine portions of the rectal folds.? At 15 cm from the anal verge was another polyp. This was a little more pedunculated. It was also about 0.25 cm. This was also removed with cold forceps without any issues. Finally, the scope was withdrawn and the patient was brought to the same-day surgery recovery unit as the anesthetic wore off. ?The findings and instructions were shared with the patient prior to discharge. Wright Bowel Prep Wright Bowel Prep Right Colon: 3 Left Colon: 3 Transverse Colon: 3 Total Score: 9
[2024-09-27 09:05] VITALS: BP 129/88; PULSE 80; RESP 20; TEMP 36.6; O2SAT 99
--- NOTE | 2024-09-27 09:22 | W.ANESPRE ---
General Info Date of Service Date Performed: 09/27/24 Height: 5 ft 3 in Weight: 78 kg Body Mass Index (BMI): 30.4 Surgical Procedure: Operation Date: 09/27/24 10:35 Proposed Procedure Side Surgeon rica Bojorquez MD Meds Allergies and Home Medications Allergies Allergy/AdvReac Type Severity Reaction Status Date / Time amoxicillin Allergy Unknown Skin Rash Verified 09/27/24 09:04 Home Medication ?Medication ?Instructions ?Recorded dextroamphetamine-amphetamine ER 20 mg (2 x 10 mg) PO DAILY #56 caps 08/18/24 10 mg 24hr capsule,extend release (Adderall XR) dextroamphetamine-amphetamine ER 20 mg PO DAILY #28 caps 08/18/24 20 mg 24hr capsule,extend release (Adderall XR) Current Visit Medications: Current Medications Generic Name Dose Route Start Last Admin Trade Name Freq PRN Reason Stop Dose Admin Ringer's Solution 500 mls @ 80 mls/hr 09/27/24 06:00 IV 09/27/24 23:59 INFUSION PHANI IV Miscellaneous Supplies 1 each 09/27/24 06:00 Iv Access IV 09/27/24 23:59 DIRECTED PHANI Ondansetron HCl 4 mg 09/26/24 15:57 Ondansetron 4 Mg/2 Ml Vial IVP 10/26/24 15:56 Q4H PRN PRN Nausea / Vomiting Sodium Chloride 0 ml 09/27/24 06:00 Normal Saline Flush 10 Ml Syr IV 09/27/24 23:59 PRN PRN Sodium Chloride 0 ml 09/27/24 06:00 Normal Saline 10 Ml Vial IJ 09/27/24 23:59 DIRECTED PRN Sterile Water 0 ml 09/27/24 06:00 Water,Injection,Sterile 10 Ml Vial IJ 09/27/24 23:59 DIRECTED PRN PFSH Active Problems Active Problems: Problem Status Onset Code Encounter for screening colonoscopy Acute Z12.11 Hyperlipidemia Chronic E78.5 ADHD Chronic F90.9 Obesity (BMI 30-39.9) Chronic E66.9 Medical History Medical History Uterine fibroid Medical History Comments:: HCG was negative Surgical History Surgical History Status post bilateral salpingectomy Tobacco Smoking/Tobacco Use Status: Never Passive smoking exposure: Yes Second hand exposure: No Alcohol Alcohol Intake: current Alcohol intake frequency: 3 or more drinks per day Alcohol type: beer Counseling provided: provider counseling and reduce to 2 or less/day Details: 6 or more drinks monthly Substance Use Substance use: Occasionally Substance use type: marijuana Prental History History 4 Para 3 Hx # Term Pregnancies Multiple births Hx # Pregnancies Ectopic pregnancies AB induced Hx Number of Living Children AB spontaneous Vital Signs and Lab Results Vital Signs Most Recent Vital Signs in EMR: Most Recent Vital Signs Temp Pulse Resp BP Pulse Ox 36.6 C 80 20 129/88 99 09/27/24 09:05 09/27/24 09:05 09/27/24 09:05 09/27/24 09:05 09/27/24 09:05 Lab Results Blood Type / Crossmatch: No Data to Display Complete Blood Count: No Data to Display Complete Metabolic Panel: No Data to Display Liver Function Panel: No Data to Display Coagulation Panel: No Data to Display Cardiac Panel: No Data to Display Arterial Blood Gas: No Data to Display Venous Blood Gas: No Data to Display Pancreas Panel: No Data to Display Thyroid Panel: No Data to Display Infectious Disease: No Data to Display Blood Cultures: No Data to Display Toxicology Panel: No Data to Display Panel: No Data to Display Anesthesia Assessment and Plan Anesthesia History Personal History: No History of Anesthesia Complications Family History: No Family History of Anesthesia Complications Exercise Tolerance Exercise Tolerance: Metabolic Equivalents>4 Pertinent Negatives Pertinent Negatives: No Symptoms of GERD (occasional denies DOS), No Major Cardiovascular Symptoms or Complaints, No Major Pulmonary Symptoms or Complaints and No History of CVA/TIA Cardiac & Pulmonary Exam Cardiac Exam: Normal S1/S2 Heart Sounds Pulmonary Exam: Clear Bilateral Breath Sounds Implantable Cardiac Device Does patient have a Pacemaker or an ICD?: No Airway Exam Known Difficult Airway: No Mallampati Class: 1 Mouth Opening: Normal (> 3cm) Thyromental Distance: Greater than 3 cm Neck Range of Motion: Full ROM Neck Circumference: Normal Teeth Condition: Normal Dentition ASA Classification ASA Score: ASA 2 Emergency Case?: No NPO Status NPO Status: NPO Clears >2 hours, Solids >8 hours Status Status: Not Relevant due to Medical History Anesthesia Plan Resuscitation Status: Full Code Anesthesia Technique: General Anesthesia Airway Planned: Natural Airway Monitors Used: Standard Monitors
[2024-09-27] MEDS: Lactated Ringers 500 ML 80 ML IV (09:24)
[2024-09-27 09:25] VITALS: BMI 30.4
--- NOTE | 2024-09-27 09:54 | BOWEL_PTH ---
PATIENT: Mónica Falk LOC: [facility] U#:[id number] AGE/SX: 44/F ROOM: RE09/27/[address]: Chace Bojorquez MD : 1980 BED: DIS: 09/27/2024 SPEC #: [id number] RECD: 09/27/24 13:13 STATUS: ESTEFANI RE #: [id number] [place]: 09/27/24 09:[address]: Chace Bojorquez DEPT: Surgical Specimen RECD BY: Krysta Mims ENTERED: 09/27/24 13:16 SP TYPE: Bowel OTHR DR: CAROLINE Ramos Tissues: 1 - BIOPSY BOWEL 2 - BIOPSY BOWEL Procedures: GROSS AND MICRO LEVEL 4 Comments: [id number]
[2024-09-27 10:07] VITALS: BP 116/77; PULSE 71; RESP 16; TEMP 36.6; O2SAT 98
[2024-09-27 10:30] VITALS: BP 124/80; PULSE 81; RESP 16; TEMP 36.6; O2SAT 98
--- NOTE | 2024-09-27 11:05 | W.ANESPOSTOP ---
Postoperative Evaluation Date, Time and Location Date Performed: 09/27/24 Time Performed: 10:30 Patient Location: Day Surgery Unit Vital Signs Most Recent Imported Vital Signs: Most Recent Vital Signs Temp Pulse Resp BP Pulse Ox 36.6 C 81 16 124/80 98 09/27/24 10:30 09/27/24 10:30 09/27/24 10:30 09/27/24 10:30 09/27/24 10:30 Pain Score Most Recent Pain Score: Most Recent Pain Score Pain Level 0 09/27/24 10:30 Assessment Mental Status: Awake (Alert & Oriented to Patient Baseline) Airway and Respiratory Function: Patent airway with normal (patient baseline) respiratory exam Cardiovascular Function: Hemodynamically Stable Hydration Status: Adequately Hydrated Nausea & Vomiting: No Nausea or Vomiting Pain: Pt. Denies Any Pain Peripheral Nerve Block: Patient did not receive a nerve block
== END 2024-09-27 10:43 | disposition home or self-care (01) ==
LOC: SUR 08:41
PROVIDERS: PCP Nurse Practitioner Family; Visit Provider Surgery
PROC: 0DJD8ZZ Inspection of Lower Intestinal Tract, Via Natural or Artificial Opening Endoscopic (ICD-10-PCS; CPT 45378; principal; 2024-09-27 10:30)
DX: Z12.11 Encounter for screening for malignant neoplasm of colon (principal); D12.8 Benign neoplasm of rectum; K57.30 Diverticulosis of large intestine without perforation or abscess without bleeding
CPT/HCPCS: 45380; 88305; J2405; J2704

== ENCOUNTER 2025-01-10 15:53 | Outpatient (CLI) | payer BC, SELFPAY ==
--- NOTE | 2025-01-10 15:42 | DI.RAD_ITS ---
Exam(s) XR ANKLE RT COMPLETE EXAM: XR ANKLE RT COMPLETE CLINICAL HISTORY: ankle pain, injury M25.579. TECHNIQUE: 2D digital imaging was performed. COMPARISON: No exams were available for comparison FINDINGS: 3 views There is soft tissue swelling on both sides the ankle, more so laterally. There is no evidence of fracture or widening the ankle mortise. Talar dome appears unremarkable. Os trigonum incidentally noted. No significant osseous lesions. No inferior calcaneal spur. No degen erative changes in the tibiotalar and subtalar joints. IMPRESSION: Soft tissue swelling but no acute osseous findings in the ankle. DATA REPOSITORY: RADIATION DOSE DELIVERED:
== END 2025-01-10 16:13 ==
LOC: DI 15:54
PROVIDERS: PCP Nurse Practitioner Family; Visit Provider Physician Assistant
DX: M25.571 Pain in right ankle and joints of right foot (principal)
CPT/HCPCS: 73610

== ENCOUNTER 2025-09-26 03:19 | Outpatient (CLI) | payer BC, SELFPAY ==
--- NOTE | 2025-09-26 06:30 | DI.MAMMO_ITS ---
Exam(s) MAMMO SCREENING EXAM: MAMMO SCREENING CLINICAL HISTORY: screening,z12.39 TECHNIQUE: Bilateral full field digital CC and MLO mammographic images were obtained with 3D tomosynthesis and utilizing computer aided detection (CAD). COMPARISON: Comparison is made with prior examinations. FINDINGS: Masses/Architectural Distortion: No suspicious masses or areas of architectural distortion are present. Microcalcifications: No suspicious pleomorphic-type are seen. Skin Thickening/Nipple Retraction: None. IMPRESSION: 1. No significant interval change with no specific features of malignancy noted. 2. Unless there is more urgent need, screening mammography is recommended, as per [place] [employer] guidelines. BI-RADS Category 1 - Negative Breast Density - Category C - The breast are heterogeneously dense, which may obscure small masses. Breast density Category C or D implies that the patient has dense breast tissue. Dense breast tissue can make it harder to find cancer on a mammogram. Dense breast tissue is also associated with an increased risk of breast cancer. This information about the result of the mammogram report was provided to the patient to raise their awareness. Use this report when you speak with the patient about their risks for breast cancer, which includes their family history. At that time, you may recommend additional screening tests (Ultrasound or MRI) as these tests may add significant information. A negative radiographic report should not delay biopsy if a dominant or clinically suspicious mass is present. Up to ten percent of cancers are not identified on mammography. A negative report may reinforce clinical impression. Adenosis and dense breasts may obscure an underlying neoplasm. False positive reports average 6 to 10%. Patient will receive a letter notifying them of these results.
== END 2025-09-26 03:39 ==
LOC: DI 03:20
PROVIDERS: PCP Nurse Practitioner Family; Visit Provider Nurse Practitioner Family
DX: Z12.31 Encounter for screening mammogram for malignant neoplasm of breast (principal)
CPT/HCPCS: 77063; 77067

== ENCOUNTER 2025-09-26 08:52 | Outpatient (CLI) | payer BC, SELFPAY ==
[2025-09-26 09:25] LABS: Hemoglobin A1C 5.2 % (<5.7)
[2025-09-26 10:11] LABS: Anion Gap 8.6 mmol/L (3-11); BUN 10 mg/dL (7-18); CO2 28.4 mmol/L (21.0-32.0); Calcium 9.2 mg/dL (8.5-10.1); Calculated LDL 152 mg/dL (<100); Chloride 101 mmol/L (98-107); Cholesterol 253 mg/dL (<200); Estimated GFR 107.95 (mL/min/1.73m2); Glucose 131 mg/dL (74-106); HDL Cholesterol 74 mg/dL (>or=50); Potassium 3.9 mmol/L (3.5-5.1); Sodium 138 mmol/L (136-145); Triglyceride 138 mg/dL (<150)
== END 2025-09-26 08:53 | disposition home or self-care (01) ==
LOC: LBO 08:53
PROVIDERS: PCP Nurse Practitioner Family; Visit Provider Nurse Practitioner Family
DX: E78.5 Hyperlipidemia, unspecified (principal)
CPT/HCPCS: 36415; 80048; 80061; 83695; 83036